=== PATIENT | male | born 1995 | race Caucasian/White ===

== ENCOUNTER 2020-01-03 11:50 | Emergency (ER) | payer OTHER, MEDICAID, SELFPAY ==
[2020-01-03 11:58] VITALS: BP 131/80; PULSE 64; RESP 14; TEMP 37; O2SAT 99
--- NOTE | 2020-01-03 12:10 | ED.EAR ---
HPI - Ear Problem <ANITA Berrios - Last Filed: 01/03/20 20:43> General Chief complaint: Ear Stated complaint: right 'ear thing going on' Time Seen by Provider: 01/03/20 11:52 History of Present Illness HPI Narrative: 24yo male with a history of Hep C, presents emergency department complaining of right ear pain for the past 4 days. He states it started on Tuesday and has been increasing in frequency and severity. Patient reports on Tuesday he went swimming, denied ear pain at that time. Patient reports slight decrease in hearing. He denies any other symptoms such as rhinorrhea, cough, shortness of breath, fevers, sinus congestion, nausea, vomiting, diarrhea, or other concerns. Patient denies any major medical issues or allergies. Related Data Allergies Allergy/AdvReac Type Severity Reaction Status Date / Time No Known Drug Allergies Allergy Verified 01/03/20 12:15 Review of Systems <ANITA Berrios - Last Filed: 01/03/20 20:43> Review of Systems Narrative: REVIEW OF SYSTEMS: GENERAL: Denies fever or chills. HENT: No head trauma. Complains of right ear pain, see HPI. EYES: Denies eye irritation or vision changes. NECK/LYMPHATIC: No lymphadenopathy. CARDIOVASCULAR: No chest pain. RESPIRATORY: No shortness of breath. INTEGUMENTARY: No rash. NEURO: No confusion. Patient History <ANITA Berrios - Last Filed: 01/03/20 20:43> Medical History No significant medical problems (Acute) Social History Smoking Status: Never smoker Smoking Status: Never smoker Exam <ANITA Berrios - Last Filed: 01/03/20 20:43> Initial Vital Signs Initial Vital Signs: Vital Signs Temperature 98.6 F 01/03/20 11:58 Pulse Rate 64 01/03/20 11:58 Respiratory Rate 14 01/03/20 11:58 Blood Pressure 131/80 01/03/20 11:58 Pulse Oximetry 99 01/03/20 11:58 PHYSICAL EXAMINATION: GENERAL: Alert, and cooperative. Answers questions promptly and appropriately. Vital signs noted. HENT: Normocephalic, atraumatic. Hearing intact. Oral mucosa is pink and moist. Face features symmetrical. Right TM TM intact, canal with moderate erythema and some purulent discharge. Left TM intact with crisp light reflex, canal without erythema, no discharge. EYES: Conjunctiva pink, sclera white, no periorbital swelling. No discharge. CARDIOVASCULAR: Regular rate. RESPIRATORY: Normal respiratory rate, trachea midline, airway patent. No stridor, nasal flaring or accessory muscle use. . MUSCULOSKELETAL: Normal gait and coordination. Equal tone and mass bilaterally. SKIN: Warm, dry, soft, appropriate color for ethnicity. NEURO: Alert and Oriented X 3. Good coordination. PSYCH: Appropriate affect and mood. <Esteban De La Paz MD - Last Filed: 01/28/20 07:12> Initial Vital Signs Initial Vital Signs: Vital Signs Temperature 98.6 F 01/03/20 11:58 Pulse Rate 64 01/03/20 11:58 Respiratory Rate 14 01/03/20 11:58 Blood Pressure 131/80 01/03/20 11:58 Pulse Oximetry 99 01/03/20 11:58 Course <ANITA Berrios - Last Filed: 01/03/20 20:43> Orders Ordered: Discontinued Medications Ketorolac Tromethamine (Toradol) 30 mg IM NOW ONE Stop: 01/03/20 12:06 Last Admin: 01/03/20 12:26 Dose: 15 mg Documented by: DENNIS Vital Signs Vital signs: Vital Signs - 8 hr 01/03/20 13:22 Pulse Rate 62 Respiratory Rate 14 Blood Pressure 128/69 Pulse Oximetry 98 <Esteban De La Paz MD - Last Filed: 01/28/20 07:12> Orders Ordered: Discontinued Medications Ketorolac Tromethamine (Toradol) 30 mg IM NOW ONE Stop: 01/03/20 12:06 Last Admin: 01/03/20 12:26 Dose: 15 mg Documented by: DENNIS Vital Signs Vital signs: Vital Signs - 8 hr 01/03/20 13:22 Pulse Rate 62 Respiratory Rate 14 Blood Pressure 128/69 Pulse Oximetry 98 Medical Decision Making <ANITA Berrios - Last Filed: 01/03/20 20:43> Medical Records Medical records reviewed: Yes I reviewed the patient's medical records. Lab Data Lab results reviewed: Yes I reviewed the patient's lab results. MDM Narrative Medical decision making narrative: History and examination consistent with otitis externa. Patient given Toradol IM injection for pain per request. Return precautions given for new or worsening symptoms. Patient agreed to plan of care verbalized understanding. Discharge Plan Departure Patient Disposition: Home Clinical Impression: Otitis externa Discharge Date/Time: 01/03/20 13:24 Activity Restrictions/Additional Instructions: Thank you for entrusting me with your care today. As discussed, you have an infection in your right ear. I prescribed you antibiotic drops, please use these accordingly. Please discontinue the use of peroxide as this will cause more irritation. Avoid swimming for the next 2-3 days. Return emergency department for any new or worsening symptoms such as severe pain, uncontrollable vomiting, high fevers, or other concerns.
[2020-01-03 12:15] VITALS: BMI 27.6
[2020-01-03] MEDS: KETOROLAC 60 MG/2 ML VIAL 30 MG IM (12:26)
--- NOTE | 2020-01-03 12:32 | PC.NURSE ---
Right ear canal has vesicles and and yellow drainage. Tympanic membrane not easily visualized.
[2020-01-03 13:22] VITALS: BP 128/69; PULSE 62; RESP 14; O2SAT 98
== END 2020-01-03 13:24 | disposition home or self-care (01) ==
PROVIDERS: Emergency Provider Nurse Practitioner
DX: H60.501 Unspecified acute noninfective otitis externa, right ear (principal)
CPT/HCPCS: 96372; 99283; J1885